=== PATIENT | female | born 1950 | race Caucasian/White ===

== ENCOUNTER 2017-04-29 18:39 | Emergency (ER) | payer MEDICARE, BC ==
[~2017-04-29] VITALS: Ht 170.2 cm; Wt 67.0 kg
[2017-04-29 18:47] VITALS: BP 174/98; PULSE 79; RESP 16; TEMP 99; O2SAT 95
[2017-04-29] MEDS ORDERED: LOSA100T PO (19:15)
[2017-04-29] MEDS ORDERED: AMLO10TA2 PO (19:17)
[2017-04-29] MEDS ORDERED: ZANT150T2 PO (19:17)
[2017-04-29] MEDS ORDERED: ALPR.5 PO (19:17)
[2017-04-29] MEDS ORDERED: ATEN50TA PO (19:17)
[2017-04-29] MEDS ORDERED: BUTA1CAP PO (19:17)
[2017-04-29] MEDS ORDERED: TRAZ100T4 PO (19:17)
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
--- NOTE | 2017-04-29 20:20 | RADHPO ---
EXAM DATE/TIME: 04/29/2017 19:50 Board Certified Radiologist. This report was verified electronically. ?
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
== END 2017-04-29 21:42 | disposition home or self-care (01) ==
LOC: PHEFT 18:39
DX: I10 Essential (primary) hypertension (principal); S93.402A Sprain of unspecified ligament of left ankle, initial encounter; V09.1XXA Pedestrian injured in unspecified nontraffic accident, initial encounter
CPT/HCPCS: 73610; 73630; 99283; E0113; L1906